=== PATIENT | male | born 1975 | race Two or more races ===

== ENCOUNTER 2023-03-08 15:31 | Emergency (ER) | payer BC, OTHER ==
[~2023-03-08] VITALS: Ht 180.3 cm; Wt 103.8 kg
[2023-03-08 16:25] LABS: Basophils # (auto) 0.1 10 ^3/uL (0-0.2); Basophils % (auto) 0.9 % (0.0-2.0); Eosinophils # (auto) 0.1 10 ^3/uL (0-0.8); Eosinophils % (auto) 1.3 % (0.0-7.0); Hematocrit 44.8 % (41.0-53.0); Lymphocytes # (auto) 1.3 10 ^3/uL (0.4-5.4); Lymphocytes % (auto) 18.6 % (10.0-50.0); Mean Corpuscular Hemoglobin 32.6 pg (28.0-32.0); Mean Corpuscular Hgb Conc. 33.6 g/dL (32.0-36.0); Mean Corpuscular Volume 97.1 fL (80.0-100.0); Monocytes # (auto) 0.3 10 ^3/uL (0-1.3); Monocytes % (auto) 4.7 % (0.0-12.0); Neutrophils # (auto) 5.2 10 ^3/uL (1.6-8.6); Neutrophils % (auto) 74.5 % (37.0-80.0); Red Blood Cells 4.61 10^6/uL (4.5-5.90); White Blood Cell 6.9 10^3/uL (4.4-10.8)
[2023-03-08 16:41] LABS: Alanine Aminotransferase 56 U/L (7-40); Alkaline Phosphatase 77 U/L (46-116); Anion Gap 8 (5-15); Aspartate Aminotransferase 29 U/L (13-40); BUN/Creatinine Ratio 8.6 (10.0-20.0); Bilirubin, Total 0.7 mg/dL (0.2-1.0); Blood Urea Nitrogen 7 mg/dL (9-23); Calcium 9.9 mg/dL (8.5-10.1); Carbon Dioxide 30 mmol/L (20-30); Chloride 104 mmol/L (98-107); Glucose 133 mg/dL (74-106); Potassium 4.4 mmol/L (3.5-5.1); Sodium 142 mmol/L (136-145)
[2023-03-08 16:42] LABS: Total Protein 7.2 g/dL (5.7-8.2)
[2023-03-08 16:52] LABS: Lipase 50 U/L (12-53)
[2023-03-08 17:12] LABS: Urine Bacteria NONE SEEN /hpf (None Seen); Urine Blood Negative /uL (Negative); Urine Clarity Clear (Clear); Urine Color Colorless (Yellow); Urine Protein, UAD Negative (Negative); Urine Specific Gravity 1.006 (1.001-1.035); Urine Urobilinogen Normal (Negative); Urine WBC <1 /hpf (0 - 3); Urine pH 6.5 (5.0-8.0)
[2023-03-08] MEDS ORDERED: HYDROcodone-ACET 10/325MG TAB PO ONE (18:00)
[2023-03-08 19:55] VITALS: TEMP 98.4
[2023-03-08 21:20] VITALS: BP 141/87; PULSE 78; RESP 17; O2SAT 95
[2023-03-08] MEDS ORDERED: ALPR0.5T PO (21:29)
[2023-03-08] MEDS ORDERED: IBUP-1454 PO (21:29)
[2023-03-08] MEDS ORDERED: ALPRAZolam 0.5 MG TAB PO ONE (21:45)
== END 2023-03-08 21:45 | disposition home or self-care (01) ==
LOC: ER 15:31
DX: N20.0 Calculus of kidney (principal); I10 Essential (primary) hypertension; F41.9 Anxiety disorder, unspecified
CPT/HCPCS: 36415; 74176; 80053; 81001; 83690; 85025

== ENCOUNTER 2024-04-05 17:56 | Emergency (ER) | payer BC ==
[~2024-04-05] VITALS: Ht 180.3 cm; Wt 106.2 kg
[~2024-04-05 17:56] MED LIST: ALPR0.5T PO; IBUP-1454 PO
[2024-04-05 18:16] LABS: Urine Bacteria None Seen /hpf (None Seen)
[2024-04-05 18:27] LABS: Urine Blood 2+ /uL (Negative); Urine Clarity Clear (Clear); Urine Color Yellow (Yellow); Urine Mucus FEW (None Seen); Urine Protein, UAD 1+ (Negative); Urine Squamous Epithelial Cell None Seen /hpf (<5); Urine Urobilinogen Normal (Negative); Urine WBC < 1 /HPF (0-3)
--- NOTE | 2024-04-05 18:37 | ED.PDOC ---
Back pain HPI HPI Comments THIS IS A 49-YEAR-OLD MALE PRESENTS TO THE ED CHIEF COMPLAINT LOW BACK PAIN. PATIENT COMPLAINING OF BILATERAL LOWER BACK PAIN X2 WEEKS STATES HEAVY LIFTING NOT IMPROVING SMALL AMT OF BURNING WITH URINATION TODAy PT REQUESTING MRI STATES HE WAS SEEN AT [facility] YESTERDAY FOR SAME, HAS XRAY TORODOL AND STEROID INJECTION CONSTANT, SHARP ACHY PAIN. DENIES NUMBNESS, WEAKNESS, LOSS OF BOWEL BLADDER CONTROL OR SADDLE ANESTHESIA Chief Complaint: Back Pain Time Seen by MD: 18:10 Primary Care Provider: YUKO Denton Notes: Nurses Notes, Medications, Allergies Allergies: Coded Allergies: NO KNOWN ALLERGIES (Unverified , 03/08/23) Home Meds Active Scripts Alprazolam (Xanax) 0.5 Mg Tb, 1 TAB PO Q8HP PRN, #15 TAB Prov:MOE PATEL PAC 03/08/23 Ibuprofen (Ibuprofen) 600 Mg Tab, 1 TAB PO Q6HP PRN, #30 TAB Prov:MOE PATEL PAC 03/08/23 Information Source: Patient Mode of Arrival: Ambulatory Past Medical History PAST MEDICAL HISTORY: Anxiety, HTN Surgical History: Denies all surgeries Family History Family History: Reviewed,noncontributory to illness Social History Smoker: Non-Smoker Alcohol: Denies ETOH Use Drugs: Denies Drug Use Lives In: Home Constitutional: denies: chills, diaphoresis, fatigue, fever, malaise, sweats, weakness, others EENTM: denies: blurred vision, double vision, ear bleeding, ear discharge, ear drainage, ear pain, ear ringing, eye pain, eye redness, hearing loss, mouth pain, mouth swelling, nasal discharge, nose bleeding, nose congestion, nose pain, photophobia, tearing, throat pain, throat swelling, voice changes, others Respiratory: denies: cough, hemoptysis, orthopnea, SOB at rest, shortness of breath, SOB with excertion, stridor, wheezing, others Cardiovascular: denies: chest pain, dizzy spells, diaphoresis, Dyspnea on exertion, edema, irregular heart beat, left arm pain, lightheadedness, palpitations, PND, syncope, others Gastrointestinal: denies: abdomen distended, abdominal pain, blood streaked bowels, constipated, diarrhea, dysphagia, difficulty swallowing, hematemesis, melena, nausea, poor appetite, poor fluid intake, rectal bleeding, rectal pain, vomiting, others Genitourinary: denies: burning, dysuria, flank pain, frequency, hematuria, incontinence, penile discharge, penile sore, pain, testicle pain, testicle swelling, urgency, others Neurological: denies: dizziness, fainting, headache, left sided numbness, left sided weakness, numbness, paresthesia, pre-existing deficit, right sided numbness, right sided weakness, seizure, speech problems, tingling, tremors, weakness, others Musculoskeletal: denies: back pain, gout, joint pain, joint swelling, muscle pain, muscle stiffness, neck pain, others Integumetry: denies: bruises, change in color, change in hair/nails, dryness, laceration, lesions, lumps, rash, wounds, others Allergic/Immunocompromised: denies: Difficulty Healing, Frequent Infections, Hives, Itching, others Hematologic/Lymphatic: denies: anemia, blood clots, easy bleeding, easy bruising, swollen glands, others Endocrine: denies: excessive hunger, excessive sweating, excessive thirst, excessive urination, flushing, intolerance to cold, intolerance to heat, unexplained weight gain, unexplained weight loss, others Psychiatric: denies: anxiety, bipolar disorder, depression, hopeless, panic disorder, schizophrenia, sleepless, suicidal, others Physical Exam General Appearance: No Apparent Distress, Normal HEENT: Pharynx Normal Neck: Full Range of Motion, Non-Tender Respiratory: Lungs Clear, No Respiratory Distress, Normal Breath Sounds Cardiovascular: No Murmur, Normal Peripheral Pulses, Regular Rate/Rhythm Breast Exam: Deferred Gastrointestinal: Non Tender, Soft Genitalia: Deferred Pelvic: Deferred Rectal: Deferred Extremities: Normal capillary refill, Normal inspection, Normal range of motion, Non-tender, No pedal edema Musculoskeletal : Location: Bilateral Extremity Location: Back (MODERATE TENDERNESS OVER L1 THROUGH L5 SPINE WITHOUT CREPITUS OR STEP-OFFS MODERATE TENDERNESS OVER L4-L5 PARASPINAL MUSCLES BILATERAL WITH NOTED SPASMS STRAIGHT LEG TEST NEGATIVE BILATERAL. STRENGTH SENSORY MOTION INTACT POSITIVE PEDAL PULSES) Apperance: Normal Neurologic: Alert, outboard system operator II-XII nml as Tested, No Motor Deficits, Normal Affect, Normal Mood, No Sensory Deficits Cerebellar Function: Normal Reflexes: Normal Skin: Dry, Normal Color, Warm Lymphatic: No Adenopathy Was a procedure done? Was a procedure done?: No Back Pain Differential Dx Differential Diagnosis: Fracture, Musculoskeletal Pain, Urinary Tract Infection X-Ray, Labs, Meds, VS Vital Signs Date Time Temp Pulse Resp B/P (MAP) Pulse Ox O2 Delivery O2 Flow Rate FiO2 04/05/24 18:55 98 18 98 Room Air 04/05/24 18:55 98.1 98 18 154/90 (111) 98 98.1 04/05/24 18:03 98.1 98 18 154/90 (111) 98 Lab Test 04/05/24 18:15 Range/Units Urine Color Yellow Yellow Urine Clarity Clear Clear Urine pH 6.0 5.0-9.0 Urine Specific [place] 1.040 H 1.001-1.035 Urine Protein 1+ H Negative Urine Ketones 1+ H Negative Urine Blood 2+ H Negative /uL Urine Nitrite Negative Negative Urine Bilirubin Negative Negative Urine Urobilinogen Normal Negative mg/dL Urine Leukocyte Esterase Negative Negative /uL Urine RBC 95 0 - 3 /hpf Urine Microscopic WBC < 1 0-3 /HPF Urine Squamous Epithelial Cells None seen <5 /hpf Urine Bacteria None seen None Seen /hpf Urine Mucus Few None Seen Urine Glucose Normal Normal mg/dL Current Medications Medications (Trade) Dose Ordered Sig/Isabel Route Start Time Stop Time Status Last Admin Acetaminophen/ Hydrocodone Bitart ([place] 5/325MG Tab) 2 tab ONCE ONCE PO 04/05/24 19:15 04/05/24 19:16 DC 04/05/24 19:26 Ketorolac Tromethamine (Toradol Injection) 60 mg ONCE ONCE IM 04/05/24 19:30 04/05/24 19:31 DC 04/05/24 19:39 X-Ray, Labs, Meds, VS Comment CT LUMBAR SPINE NEGATIVE FOR ACUTE FINDINGS OR OSSEOUS LESIONS NOTED L5-S1 DEGENERATIVE CHANGES. 60 MG TORADOL AND 10 MG OF NORCO REPORTS IMPROVEMENT IN PAIN AND FUNCTION REQUESTING DISCHARGE AT THIS TIME. WE WILL SCRIPT MEDROL DOSEPAK AND A MUSCLE RELAXER. ADVISED HIM TO FOLLOW UP WITH HIS PCP WITHIN 2-3 DAYS IF NO IMPROVEMENT CONSIDER MRI OR PHYSICAL THERAPY. PATIENT AGREES WITH DISCHARGE PLAN OF CARE. Time of 1ST Reevaluation: 20:14 Reevaluation 1ST: Improved Patient Education/Counseling: Diagnosis, Treatment, Prognosis, Need For Follow Up Family Education/Counseling: No Family Present Departure 1 Departure Time of Disposition: 20:14 Impression: Primary Impression: Lumbar radiculopathy Additional Impressions: Lumbar sprain Qualified Codes: S33.5XXA - Sprain of ligaments of lumbar spine, initial encounter Musculoskeletal pain Disposition: HOME / SELF CARE / HOMELESS Condition: Stable e-Prescriptions Tizanidine Hydrochloride (Tizanidine Hcl) 4 Mg Tab 1 TAB PO BID PRN for 5 Days, #10 TAB Prov: MANNY HUBBARD 04/05/24 Methylprednisolone (Medrol Dosepak) 4 Mg Cresencio 4 MG PO UD for 6 Days, #21 TAB UAD Prov: MANNY HUBBARD 04/05/24 Discharged With: Significant Other Critical Care Note Critical Care Time?: No Stability Stability form required: MANNY Camp Apr 05, 2024 18:37
[2024-04-05 18:55] VITALS: BP 154/90; PULSE 98; RESP 18; TEMP 98.1; O2SAT 98
[2024-04-05] MEDS: HYDROcodone-ACET 5/325MG TAB PO ONE (19:26)
[2024-04-05] MEDS: KETOROLAC TROMETH 60MG/2ML VIAL IM ONE (19:39)
--- NOTE | 2024-04-05 20:11 | DVH ---
CT OF THE LUMBAR SPINE WITHOUT CONTRAST HISTORY: BILAT RADICULOPATHY COMPARISON: Lumbar spine radiographs 04/04/2024. Correlation also made to abdomen and pelvis CT date d 03/08/2023. TECHNIQUE: Thin section helical axial scans of the lumbar spine obtained. Sagittal and coronal reform atted images were performed. One or more of the following radiation dose reduction techniques were us ed for this examination: automated exposure control, adjustment of the mA and/or kV according to richy ent size, use of iterative reconstruction technique. FINDINGS: No grossly displaced fractures or subluxations of the lumbar spine identified. Visualized vertebral b [place] appear maintained. Disc space narrowing with posterior disc osteophyte complex again note d at L5-S1. This causes mild narrowing of the bony spinal canal and neural foramina at this level. No free air or fluid identified within the imaged abdomen and pelvis. IMPRESSION: No displaced fractures or subluxations identified. Degenerative changes at L5-S1. Follow-up MRI may be obtained to further evaluate.
[2024-04-05] MEDS ORDERED: TIZA-142 PO (20:16)
[2024-04-05] MEDS ORDERED: METH4PAK PO (20:16)
== END 2024-04-05 20:25 | disposition home or self-care (01) ==
LOC: ER 18:03
DX: M54.16 Radiculopathy, lumbar region (principal); S33.5XXA Sprain of ligaments of lumbar spine, initial encounter; I10 Essential (primary) hypertension; F41.9 Anxiety disorder, unspecified; Z79.899 Other long term (current) drug therapy; X58.XXXA Exposure to other specified factors, initial encounter; Y93.89 Activity, other specified; Y92.89 Other specified places as the place of occurrence of the external cause; Y99.8 Other external cause status
CPT/HCPCS: 72131; 81001; 96372; 99285; J1885

== ENCOUNTER 2024-07-30 07:07 | Day surgery (SDC) | payer BC ==
[2024-07-25 11:56] LABS: Basophils # (auto) 0 10 ^3/uL (0-0.2); Basophils % (auto) 0.9 % (0.0-2.0); Eosinophils # (auto) 0.4 10 ^3/uL (0-0.8); Eosinophils % (auto) 7.1 % (0.0-7.0); Hematocrit 43.7 % (41.0-53.0); Hemoglobin 14.9 g/dL (13.5-17.5); Lymphocytes # (auto) 1.7 10 ^3/uL (0.4-5.4); Mean Corpuscular Hemoglobin 32.8 pg (28.0-32.0); Mean Corpuscular Volume 96.3 fL (80.0-100.0); Monocytes # (auto) 0.3 10 ^3/uL (0-1.3); Monocytes % (auto) 6.3 % (0.0-12.0); Neutrophils # (auto) 2.7 10 ^3/uL (1.6-8.6); Neutrophils % (auto) 52.7 % (37.0-80.0); Platelet Count (auto) 168 10^3/uL (140-450); Red Blood Cells 4.54 10^6/uL (4.5-5.90); White Blood Cell 5.2 10^3/uL (4.4-10.8)
[2024-07-25 12:09] LABS: INR 0.99 (0.9-1.15); Partial Thromboplastin Time 26.8 SEC (24.5-34.5); Prothrombin Time 10.5 sec (9.3-11.8)
[2024-07-25 13:15] LABS: Alanine Aminotransferase 25 U/L (7-40); Alkaline Phosphatase 67 U/L (46-116); Anion Gap 8 (5-15); Aspartate Aminotransferase 15 U/L (13-40); BUN/Creatinine Ratio 20.3 (10.0-20.0); Blood Urea Nitrogen 15 mg/dL (9-23); Carbon Dioxide 29 mmol/L (20-31); Chloride 104 mmol/L (98-107); Glucose 98 mg/dL (74-106); Potassium 4.4 mmol/L (3.5-5.1); Sodium 141 mmol/L (136-145); Total Protein 6.8 g/dL (5.7-8.2)
[2024-07-25 13:16] LABS: Albumin 4.7 g/dL (3.2-4.8); Bilirubin, Total 0.7 mg/dL (0.2-1.0)
[~2024-07-30] VITALS: Ht 180.3 cm; Wt 102.1 kg
[~2024-07-30 07:07] MED LIST changes: +ATOR40TA52 PO; +CETI-176 PO; +LISI20TA56 PO; +TRAM50TA2 PO; +TRAZ-228 PO
[2024-07-30] MEDS ORDERED: SODIUM CHLORIDE LOCK 10 ML ONE (08:25)
[2024-07-30 09:40] VITALS: PULSE 75; RESP 16; O2SAT 100
[2024-07-30] MEDS: fentaNYL CITRATE 100 MCG/2 ML VL ONE ×2 (09:47→09:54)
[2024-07-30] MEDS: diphenhdrAMINE HCL 50 MG/1 ML VL ONE (09:47)
[2024-07-30] MEDS: MIDAZOLAM HCL 5 MG/ML-1ML VIAL ONE (09:47)
[2024-07-30] MEDS: MIDAZOLAM HCL 2MG/2ML 2ml VIAL (1mg/ml) ONE (09:59)
[2024-07-30 10:18] VITALS: PULSE 58; RESP 15; TEMP 98.4; O2SAT 100
--- NOTE | 2024-07-30 10:22 | DVHOP2 ---
Operative Report DATE OF PROCEDURE: 07/30/24 INDICATIONS FOR THE PROCEDURE: Rectal bleeding PROCEDURE PERFORMED: Colonoscopy and polyp removal by cold biopsy forceps Colonoscopy and biopsy of the mildly inflamed terminal ileum and sigmoid. POSTOPERATIVE DIAGNOSIS: Minimal nonspecific inflammation of the terminal Ileum biopsies taken by cold biopsy forceps mild sigmoiditis biopsies taken with cold biopsy forceps Small distal sigmoid polyp about 5 mm removed by cold biopsy forceps INFORMED CONSENT: The risks and benefits and alternatives were explained to the patient and informed consent was obtained. PROCEDURE IN DETAIL: The patient was kept NPO after midnight. A preop evaluation was done which was unremarkable Conscious sedation was given with 6 mg of Versed and 150 mg of fentanyl and 50 mg of Benadryl Olympus colonoscope was passed through the rectum all the way up to cecum. And the terminal ileum The terminal ileum Cecum, ascending colon, hepatic flexure, transverse colon, splenic flexure, descending colon, and sigmoid colon were all visualized and the findings were as follows: Findings Terminal ileum was showing some minimal nonspecific erythema and hence biopsies taken to ensure there is no occult inflammatory bowel disease: No evidence of any gross IBD Cecum ascending colon hepatic flexure transverse colon splenic flexure descending colon were unremarkable except for some thick stools which were cleaned out as much as possible but grossly no lesions In the sigmoid there were some erythematous streaks in the midsigmoid suggestive of mild nonspecific sigmoiditis biopsies taken with cold biopsy forceps In the distal sigmoid there was one small polyp of about 5 mm removed with the cold biopsy forceps completely In the rectum there were internal hemorrhoids seen without any gross bleeding In tolerated the procedure extremely well post vital signs stable ENDOSCOPIC IMPRESSION: Minimal nonspecific inflammation of the terminal Ileum biopsies taken by cold biopsy forceps mild sigmoiditis biopsies taken with cold biopsy forceps Small distal sigmoid polyp about 5 mm removed by cold biopsy forceps SUGGESTIONS: Await the biopsy results symptomatic treatment Further workup and treatment depending upon the histology of the polyp and the biopsy results Thank you Dr.Nandas Gonzálesfor asking me to take part in the care of this pleasant man With warm regards, URSZULA Lazcano MD July 30, 2024 10:22
[2024-07-30 10:48] VITALS: BP 144/95; PULSE 64; RESP 16; O2SAT 96
== END 2024-07-30 11:25 | disposition home or self-care (01) ==
LOC: GI 07:07
PROVIDERS: ATTEND Internal Medicine Gastroenterology
DX: K62.5 Hemorrhage of anus and rectum (principal); K63.5 Polyp of colon; K63.89 Other specified diseases of intestine; I10 Essential (primary) hypertension; E78.00 Pure hypercholesterolemia, unspecified; Z79.899 Other long term (current) drug therapy; Z90.49 Acquired absence of other specified parts of digestive tract; Z98.890 Other specified postprocedural states; Z88.5 Allergy status to narcotic agent
CPT/HCPCS: 36415; 45380; 80053; 85025; 85610; 85730; 88305; J1200; J2250; J3010; J7030; 99152; 99153

== ENCOUNTER 2024-09-08 13:29 | Outpatient (CLI) | payer BC ==
[2024-09-08 14:13] LABS: Hematocrit 43.3 % (41.0-53.0); Hemoglobin 14.9 g/dL (13.5-17.5); Mean Corpuscular Hemoglobin 33.2 pg (28.0-32.0); Mean Corpuscular Volume 96.4 fL (80.0-100.0); Nucleated Red Blood Cells % 0.1 %
[2024-09-08 14:35] LABS: Alanine Aminotransferase 25 U/L (7-40); Albumin 4.6 g/dL (3.2-4.8); Alkaline Phosphatase 62 U/L (46-116); Anion Gap 9 (5-15); BUN/Creatinine Ratio 16.7 (10.0-20.0); Blood Urea Nitrogen 14 mg/dL (9-23); Calcium 9.6 mg/dL (8.7-10.4); Carbon Dioxide 28 mmol/L (20-31); Chloride 104 mmol/L (98-107); Cholesterol 165 mg/dL (< 200); Glucose 95 mg/dL (74-106); HDL Cholesterol 53 mg/dL (40-59); Potassium 4.4 mmol/L (3.5-5.1); Sodium 141 mmol/L (136-145); Total Protein 6.6 g/dL (5.7-8.2)
[2024-09-08 14:36] LABS: Bilirubin, Total 0.7 mg/dL (0.2-1.0); Triglycerides 165 mg/dL (< 150)
[2024-09-08 14:38] LABS: Protein, Urine 8.3 mg/dL (1-14)
== END 2024-09-08 17:00 | disposition home or self-care (01) ==
LOC: LAB 13:29
PROVIDERS: ATTEND Internal Medicine Hematology & Oncology
DX: R73.03 Prediabetes (principal)
CPT/HCPCS: 36415; 80053; 80061; 82043; 82570; 83036; 84156; 85025